=== PATIENT | female | born 1950 | race Caucasian/White ===

== ENCOUNTER 2023-11-28 09:36 | Day surgery (SDC) | payer OTHER ==
[2023-11-22 15:43] VITALS: BMI 23.6
[2023-11-28] MEDS ORDERED: PROPOFOL 60 ML ONE (10:37)
[2023-11-28 11:23] VITALS: TEMP 97.1
[2023-11-28 11:26] VITALS: BP 98/64; PULSE 68; RESP 19
== END 2023-11-28 11:37 | disposition home or self-care (01) ==
LOC: FASU-ENDO 09:36
PROVIDERS: ATTEND Internal Medicine Gastroenterology
PROC: 0DJD8ZZ Inspection of Lower Intestinal Tract, Via Natural or Artificial Opening Endoscopic (ICD-10-PCS; principal; 2023-11-28 10:48)
DX: Z12.11 Encounter for screening for malignant neoplasm of colon (principal); K57.30 Diverticulosis of large intestine without perforation or abscess without bleeding